=== PATIENT | male | born 1965 | race Caucasian/White ===

== ENCOUNTER → 2022-12-21 | Outpatient (CLI) | payer OTHER | LOC: M RAD 15:26 | PROVIDERS: ATTEND Internal Medicine | DX: M54.2 Cervicalgia (principal); M54.30 Sciatica, unspecified side ==

== ENCOUNTER → 2025-03-12 | Outpatient (CLI) | payer OTHER ==
[~2025-03-12] MED LIST: ALPR0.25; AMLO1TAB25; LISI40TA10; OMEG10002 PO; OMEP40CA4 PO; PRAZ1CAP PO; PROB250C PO; ROSU20TA86 PO; VITMTA PO
== END ==
LOC: M PLAIMG 10:32
PROVIDERS: ATTEND Physician Assistant
DX: I71.20 Thoracic aortic aneurysm, without rupture, unspecified (principal); I35.1 Nonrheumatic aortic (valve) insufficiency

== ENCOUNTER → 2025-03-31 | Outpatient (CLI) | payer OTHER | LOC: M PLAIMG 12:20 | PROVIDERS: ATTEND Internal Medicine | DX: M54.2 Cervicalgia (principal) ==